=== PATIENT | male | born 1965 | race Hispanic/Latino ===

== ENCOUNTER 2021-12-20 06:49 | Day surgery (SDC) | payer OTHER ==
[2021-12-20] MEDS ORDERED: ASPIRIN EC 325 MG TAB PO SCH (07:00)
[2021-12-20 07:35] LABS: Basophils % (Auto) 0.8 % (0.0-1.8); Eosinophils # (Auto) 0.1 K/mm3 (0.0-0.4); Eosinophils % (Auto) 2.8 % (0.0-4.3); Hematocrit 44.1 % (35.5-45.6); Hemoglobin 14.7 gm/dl (11.8-15.2); Lymphocytes # (Auto) 1.9 K/mm3 (1.2-5.4); Lymphocytes % (Auto) 38.5 % (13.4-35.0); Mean Corpuscular HGB Conc 33 % (32-34); Mean Corpuscular Volume 88 fl (84-94); Monocytes # (Auto) 0.4 K/mm3 (0.0-0.8); Monocytes % (Auto) 8.7 % (0.0-7.3); Platelet Count 248 K/mm3 (140-440); Red Blood Count 4.99 M/mm3 (3.65-5.03); Red Cell Distribution Width 14.7 % (13.2-15.2)
[2021-12-20 07:44] LABS: INR 0.83 (0.87-1.13)
[2021-12-20 07:45] LABS: Partial Thromboplastin Time 27.5 Sec. (24.2-36.6)
[2021-12-20 07:46] LABS: BUN/Creatinine Ratio 13; Blood Urea Nitrogen 12 mg/dL (9-20); Calcium 9.1 mg/dL (8.4-10.2); Hemolysis Index 2
[2021-12-20] MEDS ORDERED: SODIUM CHLORIDE 0.9% 500 ML 500 ML IV SCH (08:00)
[2021-12-20] MEDS ORDERED: HEPARIN/NS 5000 UNIT/500ML 1,000 ML IR ONE (08:34)
[2021-12-20] MEDS ORDERED: VERAPAMIL 5 MG/2 ML INJ ONE (08:35)
[2021-12-20] MEDS ORDERED: NITROGLYCERIN SYRINGE 3 ML ONE ×2 (08:35→09:58)
[2021-12-20] MEDS ORDERED: HEPARIN 10,000 UNITS/10 ML VIAL ONE ×2 (08:35→09:57)
[2021-12-20] MEDS ORDERED: MIDAZOLAM 2 MG/2 ML INJ ONE (08:56)
[2021-12-20] MEDS ORDERED: fentaNYL 100 MCG/2 ML INJ ONE (08:56)
[2021-12-20] MEDS ORDERED: fentaNYL 100 MCG/2 ML INJ IV ONE ×4 (08:59→09:51)
[2021-12-20] MEDS ORDERED: MIDAZOLAM 2 MG/2 ML INJ IV ONE ×4 (08:59→09:51)
[2021-12-20] MEDS ORDERED: LIDOCAINE (1%) 10 MG/1 ML VIAL 20 ML MDV INFILTRATI ONE ×2 (08:59→09:12)
[2021-12-20] MEDS ORDERED: NITROGLYCERIN 600 MCG/3 ML SYRINGE ART-SHEATH ONE (09:14)
[2021-12-20] MEDS ORDERED: HEPARIN 10,000 UNITS/10 ML VIAL ART-SHEATH ONE (09:14)
[2021-12-20] MEDS ORDERED: HEPARIN 10,000 UNITS/10 ML VIAL IV ONE ×2 (09:25→09:54)
[2021-12-20] MEDS ORDERED: ALUM-MAG HYDROXIDE-SIMETHICONE 200-200-20MG/5ML ORAL LIQD 30 ML ONE (09:53)
[2021-12-20] MEDS ORDERED: TICAGRELOR 90 MG TAB ONE (09:53)
[2021-12-20] MEDS ORDERED: HEPARIN/NS 5000 UNIT/500ML 500 ML IR ONE (10:13)
[2021-12-20] MEDS ORDERED: TICAGRELOR 90 MG TAB PO ONE (10:40)
[2021-12-20] MEDS ORDERED: ALUM-MAG HYDROXIDE-SIMETHICONE 200-200-20MG/5ML ORAL LIQD 30 ML PO ONE (10:40)
[2021-12-20] MEDS ORDERED: traMADol 50 MG TAB PO PRN (11:00)
[2021-12-20] MEDS ORDERED: HYDROcodone/ACETAMINOPHEN 5-325 MG TAB PO PRN (11:00)
--- NOTE | 2021-12-20 12:06 | Cardiac Catherization Report ---
DATE OF PROCEDURE: 12/20/2021 CARDIAC CATHETERIZATION REFERRING PHYSICIAN: Dr. Winchester. INDICATIONS FOR PROCEDURE: The patient is a pleasant 56-year-old gentleman with multiple risk factors, unstable angina, abnormal stress test, recurrent chest pain, referred for left heart catheterization. Risks, benefits, potential alternatives explained at length prior to obtaining informed consent. PROCEDURE IN DETAIL: The patient was brought to airport maintenance laborer in a postabsorptive state, prepped and draped in sterile fashion. Vickey's test in right hand is normal. A 2 mL of 2% lidocaine used to anesthetize the right wrist. A standard 6-[place]ak[place] hydrophilic sheath used to cannulate the right radial artery via modified Seldinger technique. All exchanges performed to exchange a J-tip guidewire. JL3.5 catheter was used to engage the left main. No dampening or ventricularization. Cineangiography performed in all projections. JR4 catheter used to cross the aortic valve under fluoroscopic guidance. Left ventriculography performed in 30-degree BLANCO and 30-degree IRISH projections via hand injections and catheter flushed. Manual pullback performed with continuous pressure monitoring. Catheter used to engage the right coronary. No dampening or ventricularization. Cineangiography performed in all projections. Next, catheter removed from the body. DATA: Aortic pressure is 120/70, LV pressure is 120, LVEDP of 18 mmHg. Left ventriculography reveals normal systolic performance, estimated ejection fraction 55-60%. No evidence of aortic stenosis. CORONARY ANATOMY: This is a right dominant system. Right coronary is a moderate sized vessel, courses AV groove, distally bifurcates into posterior and posterolateral branches. No discrete stenoses noted. No obstructive disease noted. There is a 25% distal right coronary stenosis noted. Left main without significant disease. Left main trifurcates into left anterior descending, ramus intermedius and left circumflex. Ramus intermedius with a subtotal occlusion proximally with left to left collaterals. There is a 90% OM1 stenosis noted as well. At this point, we turned our attention to the subtotal occlusion of the ramus. Heparin given. Abnormal ACT confirmed. The patient was already loaded with aspirin. We used an EBU 3.5 guide to engage the left main without difficulty. Some difficulty crossing the lesion, but eventually crossed with a Print Decorator 50 wire. Predilation with a 2.5 x 12 balloon. Next, we used a 2.75 x 15 [place] stent at 12 MUKUL for 30 seconds, excellent result. Mild disease distal to the stent. We eventually used a gary wire to predilate the lesion distally with a 2.5 x 12 and delivered a 2.75 x 8 [place] stent overlapping distally, postdilated the overlap, excellent final angiographic result. Next, we used intravascular ultrasound, which showed a well-opposed and well-expanded stent, no dissection proximally or distally, excellent result. STELLA 3 flow, no complications. Medical management of the right coronary, we will electively stage the OM1. I directly supervised the administration of moderate sedation with fentanyl and Versed from 9:05 a.m. to 10:30 a.m. No immediate complications identified. CONCLUSIONS: 1. Severe 2-vessel coronary artery disease in this right dominant system. A. Subtotal occlusion of ramus intermedius, status post successful IVUS-guided percutaneous coronary intervention with 2 overlapping drug-eluting stents ([place] 2.75 x 15, [place] 2.75 x 8) with excellent final angiographic and ultrasonographic results. No immediate complications, 0% residual stenosis. B. 90% OM1 stenosis, which is smooth. 2. Nonobstructive disease noted in the right coronary and left anterior descending. 3. Normal left ventricular systolic performance, estimated ejection fraction 55-60%. 4. Normal left ventricular end-diastolic pressure. The patient is clinically stable. Load with Brilinta, aspirin. No symptoms. EKG is stable. We will consider same day discharge. We will stage the left circumflex selectively in 2-3 weeks. Importance of dual antiplatelet therapy discussed at length. Follow up with Dr. Winchester in the office in 1-2 weeks Results of procedure explained to the patient and family. All questions were addressed. TID: [id number] RECEIPT: [id number] HALIE/KANDICE
--- NOTE | 2021-12-20 13:30 | Short Stay Summary ---
Short Stay Documentation Date of service: 12/20/21 - History H&P: obtained from office - Allergies and Medications Current Medications: Allergies No Known Allergies Allergy (Verified 12/20/21 07:09) Home Medications Medication Instructions Recorded Confirmed Last Taken Type Losartan [Cozaar] 50 mg PO QDAY 12/20/21 12/20/21 12/19/21 History Rivaroxaban [Xarelto] 20 mg PO QDAY 12/20/21 12/20/21 12/17/21 History Rosuvastatin Calcium [Crestor] 10 mg PO DAILY 12/20/21 12/20/21 12/19/21 History Ticagrelor [Brilinta] 90 mg PO BID 30 Days #60 tablet 12/20/21 Unknown Rx Active Medications Hydrocodone Bitart/Acetaminophen (Hydrocodone/Acetaminophen 5-325 Mg Tab) 1 each PO Q4H PRN PRN Reason: Pain, Moderate (4-6) Sodium Chloride (Nacl 0.9% 500 Ml) 500 mls @ 50 mls/hr IV DIRECT ODELL Stop: 12/20/21 17:59 Last Admin: 12/20/21 08:16 Dose: 50 mls/hr Tramadol HCl (Tramadol 50 Mg Tab) 50 mg PO Q4H PRN PRN Reason: Pain, Mild (1-3) - Physical exam Integumentary: other (Dressing clean dry and intact no signs of bleeding or hematoma) - Brief post op/procedure progress note Date of procedure: 12/20/21 Pre-op diagnosis: Abnormal stress test Post-op diagnosis: other (Two-vessel coronary artery disease) Anesthesia: local Estimated blood loss: minimal - Hospital course Hospital course: Patient presents today for cardiac cath. Patient tolerated procedure well with no complications. Patient was found to have severe two-vessel coronary artery disease with a subtotal occlusion of ramus s/p PCI with 2 IDA. Patient to have stage intervention of circumflex in 2 to 3 weeks. Patient started on dual antiplatelet therapy with aspirin and Brilinta. Unable to do initiate therapy with beta-fabby due to low heart rates. Patient will follow with Dr. Ag in the office in 1 to 2 weeks - Disposition Condition at discharge: Good Disposition: 01 HOME / SELF CARE / HOMELESS - Discharge Diagnoses (1) Coronary artery disease Status: Acute (2) Unstable angina Status: Acute Short Stay Discharge Plan Activity: advance as tolerated Diet: low fat, low cholesterol, low salt Wound: keep clean and dry, per your surgeon's advice Additional Instructions: Patient has been scheduled for cardiac cath on 01/02/2022 at 8:30 AM Patient has a scheduled appointment with Dr. Winchester on 01/09/2022 at 2:30 PM Follow up with: KIT PETER MD [Primary Care Provider] - 7 Days Prescriptions: Ticagrelor [Brilinta] 90 mg PO BID 30 Days #60 tablet
[2021-12-20 15:08] VITALS: BP 134/84
--- NOTE | 2021-12-21 17:58 | Electrocardiograph Report ---
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
--- NOTE | 2021-12-23 12:00 | Electrocardiograph Report ---
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
== END 2021-12-20 16:00 | disposition home or self-care (01) ==
LOC: CATHLABREC 06:49
PROVIDERS: ATTEND Internal Medicine
DX: I25.110 Atherosclerotic heart disease of native coronary artery with unstable angina pectoris (principal); R94.39 Abnormal result of other cardiovascular function study; R07.89 Other chest pain; I10 Essential (primary) hypertension; R06.02 Shortness of breath; E78.00 Pure hypercholesterolemia, unspecified; Z86.718 Personal history of other venous thrombosis and embolism; Z79.899 Other long term (current) drug therapy; Z86.711 Personal history of pulmonary embolism; Z90.49 Acquired absence of other specified parts of digestive tract; Z96.652 Presence of left artificial knee joint; Z98.890 Other specified postprocedural states; E78.49 Other hyperlipidemia
CPT/HCPCS: 36415; 80048; 85025; 85610; 85730; 92978; 93005; 93458; 99156; 99157; C1725; C1753; C1769; C1874; C1887; C1894; C9600; J1644; J1815; J2250; J3010; J3490; J7040; 92928; Q9967

== ENCOUNTER 2022-01-02 07:42 | Day surgery (SDC) | payer OTHER ==
[2022-01-02] MEDS ORDERED: SODIUM CHLORIDE 0.9% 500 ML 500 ML IV SCH (08:00)
[2022-01-02 08:43] LABS: Basophils % (Auto) 0.7 % (0.0-1.8); Eosinophils # (Auto) 0.1 K/mm3 (0.0-0.4); Eosinophils % (Auto) 2.5 % (0.0-4.3); Hematocrit 42.2 % (35.5-45.6); Hemoglobin 14.4 gm/dl (11.8-15.2); Lymphocytes # (Auto) 1.8 K/mm3 (1.2-5.4); Lymphocytes % (Auto) 39.5 % (13.4-35.0); Mean Corpuscular HGB Conc 34 % (32-34); Mean Corpuscular Volume 88 fl (84-94); Monocytes # (Auto) 0.4 K/mm3 (0.0-0.8); Monocytes % (Auto) 8.4 % (0.0-7.3); Platelet Count 236 K/mm3 (140-440); Red Blood Count 4.79 M/mm3 (3.65-5.03); Red Cell Distribution Width 14.6 % (13.2-15.2)
[2022-01-02] MEDS ORDERED: HEPARIN/NS 5000 UNIT/500ML 1,000 ML IR ONE (08:48)
[2022-01-02] MEDS ORDERED: HEPARIN 10,000 UNITS/10 ML VIAL ONE (08:49)
[2022-01-02] MEDS ORDERED: NITROGLYCERIN SYRINGE 3 ML ONE (08:49)
[2022-01-02] MEDS ORDERED: LIDOCAINE (2%) 20 MG/1 ML VIAL 50 ML MDV INFILTRATI ONE (08:49)
[2022-01-02] MEDS ORDERED: VERAPAMIL 5 MG/2 ML INJ ONE (08:49)
[2022-01-02] MEDS ORDERED: fentaNYL 100 MCG/2 ML INJ ONE (08:50)
[2022-01-02 08:55] LABS: BUN/Creatinine Ratio 17; Blood Urea Nitrogen 17 mg/dL (9-20); Hemolysis Index 1
[2022-01-02 09:02] LABS: INR 0.88 (0.87-1.13)
[2022-01-02] MEDS: MIDAZOLAM 2 MG/2 ML INJ ONE ×2 (09:37→09:49)
[2022-01-02] MEDS ORDERED: TICAGRELOR 90 MG TAB ONE (10:06)
[2022-01-02] MEDS ORDERED: HYDROcodone/ACETAMINOPHEN 5-325 MG TAB PO PRN (11:30)
[2022-01-02] MEDS ORDERED: traMADol 50 MG TAB PO PRN (11:30)
--- NOTE | 2022-01-02 13:00 | Cardiac Catherization Report ---
DATE OF PROCEDURE: 01/02/2022 CARDIAC CATHETERIZATION REFERRING PHYSICIAN: Dr. Winchester. INDICATIONS FOR PROCEDURE: The patient is a very pleasant 56-year-old gentleman with chest pain, here for staged PCI of the left circumflex, 2 weeks ago had catheterization, which revealed a subtotal occlusion of a ramus intermedius. He underwent PCI successfully with placement of 2 drug-eluting stents, also has a 99% mid left circumflex, which he is here for elective PCI given symptoms and abnormal nuclear stress test and preoperative status. Risks, benefits and alternatives discussed. His Xarelto was stopped for 2 days prior. He is on aspirin and Brilinta. Brought to the laborer plumbing in a postabsorptive state, prepped and draped in sterile fashion. Vickey's test in right hand is normal. 2 mL of 2% lidocaine used to anesthetize the right wrist. A standard 6-Slovak hydrophilic sheath used to cannulate the right radial artery via modified Seldinger technique. All exchanges performed to exchange a J-tip guidewire. A JR4 catheter used to cross the aortic valve under fluoroscopic guidance. Left ventriculography performed in the 30-degree BLANCO and 30-degree DAVID projection. Catheter flushed. Manual pullback performed with continuous pressure monitoring. Next, we used an EBU 3.5 guide to engage the left main without difficulty. Left heart reveals normal systolic performance, estimated ejection fraction 55-60%. Left main without significant disease, bifurcates into left anterior descending and left circumflex. The ramus intermedius stent is wide open. The 99% mid left circumflex lesion is still present. The patient is in normal sinus rhythm throughout. LV function is 55-60%. Aortic pressure is 110/70, LV pressure is 110, LVEDP of 12 mmHg. No evidence of aortic stenosis. At this point, we turned our attention to PCI. Heparin given. Abnormal ACT confirmed. We used a Owner 50 wire eventually to cross the lesion without difficulty. A 2.0 x 12 balloon used to predilate the lesion. Next, we used a 2.25 x 15 [place] stent at 12 MUKUL for 30 seconds to deploy. Excellent final angiographic result. The vessel was likely too small for IVUS. Final angiogram reveals excellent result, 0% residual stenosis, STELLA 3 flow, no dissection, excellent flow. I directly supervised the administration of fentanyl and Versed for moderate sedation from 9:37 a.m. to 10:10 a.m. No immediate complications. CONCLUSIONS: 1. Successful staged PCI of 99% mid left circumflex with placement of drug-eluting stent ([place] 2.25 x 15) with excellent final and angiographic result. Initial STELLA 2 flow. Now STELLA 3 flow. Initial 99% stenosis, now 0% stenosis. 2. Patent ramus intermedius stent. 3. Normal left ventricular function, estimated ejection fraction 55-60%. 4. Normal LVEDP. The patient is clinically stable, chest pain free. Restart Xarelto. Continue Brilinta. The patient has been reloaded with Brilinta. Continue Brilinta and aspirin. Stop aspirin at the 30-day corey. Continue Brilinta and Xarelto. Follow up with Dr. Winchester in the office. Standard radial care. Results of procedure explained to the patient and his . All questions and concerns were addressed. We will consider same day discharge. TID: [id number] RECEIPT: [id number] HALIE/ANDREAS
--- NOTE | 2022-01-02 13:59 | Short Stay Summary ---
Short Stay Documentation Date of service: 01/02/22 - History H&P: obtained from office - Allergies and Medications Current Medications: Allergies No Known Allergies Allergy (Verified 12/20/21 07:09) Home Medications Medication Instructions Recorded Confirmed Last Taken Type Losartan [Cozaar] 50 mg PO QDAY 12/20/21 01/02/22 01/01/22 History 50 mg Rivaroxaban [Xarelto] 20 mg PO QDAY 12/20/21 01/02/22 12/30/21 History 20 mg Rosuvastatin Calcium [Crestor] 10 mg PO DAILY 12/20/21 01/02/22 01/01/22 History 10 mg Ticagrelor [Brilinta] 90 mg PO BID 30 Days #60 tablet 12/20/21 01/02/22 01/02/22 09:09 Rx Aspirin EC [Halfprin EC] 81 mg PO DAILY 01/02/22 01/02/22 01/02/22 09:09 History 81 mg Active Medications Hydrocodone Bitart/Acetaminophen (Hydrocodone/Acetaminophen 5-325 Mg Tab) 1 each PO Q4H PRN PRN Reason: Pain, Moderate (4-6) Sodium Chloride (Nacl 0.9% 500 Ml) 500 mls @ 50 mls/hr IV DIRECT ODELL Stop: 01/02/22 17:59 Last Admin: 01/02/22 09:07 Dose: 50 mls/hr Tramadol HCl (Tramadol 50 Mg Tab) 50 mg PO Q4H PRN PRN Reason: Pain, Mild (1-3) - Physical exam Integumentary: other (Right radial cath site clean dry and intact. No hematoma no bleeding) - Brief post op/procedure progress note Date of procedure: 01/02/22 Pre-op diagnosis: CAD Post-op diagnosis: same Anesthesia: local Estimated blood loss: minimal Condition: stable - Hospital course Hospital course: Patient was brought to [facility] for scheduled left heart catheterization with PCI. Patient tolerated procedure well with no complications. Patient received PCI of 99% mid left circumflex with placement of drug-eluting stent. Patient to be discharged home in stable condition. Right radial site clean dry and intact. No bleeding no hematoma - Disposition Condition at discharge: Good Disposition: 01 HOME / SELF CARE / HOMELESS - Discharge Diagnoses (1) Coronary artery disease Status: Acute (2) Unstable angina Status: Acute Short Stay Discharge Plan Activity: advance as tolerated Diet: low fat, low cholesterol, low salt Wound: keep clean and dry, per your surgeon's advice Follow up with: KIT PETER MD [Primary Care Provider] - 7 Days CALLIE KRISHNAMURTHY MD [Staff Physician] - 01/09/22 2:30 pm Forms: CardCath PCI D/C Instructions
[2022-01-02 15:01] VITALS: BP 125/68
--- NOTE | 2022-01-03 20:18 | Electrocardiograph Report ---
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
--- NOTE | 2022-01-03 20:20 | Electrocardiograph Report ---
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
== END 2022-01-02 16:35 | disposition home or self-care (01) ==
LOC: CATHLABREC 07:42
PROVIDERS: ATTEND Internal Medicine
DX: R07.89 Other chest pain (principal); R06.02 Shortness of breath; I25.110 Atherosclerotic heart disease of native coronary artery with unstable angina pectoris; E78.49 Other hyperlipidemia; I10 Essential (primary) hypertension; Z79.82 Long term (current) use of aspirin; Z79.899 Other long term (current) drug therapy; Z86.711 Personal history of pulmonary embolism; Z96.652 Presence of left artificial knee joint; Z83.3 Family history of diabetes mellitus; Z90.49 Acquired absence of other specified parts of digestive tract; Z98.890 Other specified postprocedural states; Z85.89 Personal history of malignant neoplasm of other organs and systems
CPT/HCPCS: 36415; 80048; 85025; 85610; 85730; 93005; 99156; 99157; C1725; C1769; C1874; C1887; C1894; C9600; J1644; J1815; J2250; J3010; J3490; J7040; 92928; Q9967